=== PATIENT | male | born 1975 | race Asian ===

== ENCOUNTER 2021-04-13 03:43 | Emergency (ER) | payer OTHER ==
[~2021-04-13] VITALS: Ht 180.3 cm; Wt 108.9 kg
[2021-04-13] MEDS ORDERED: CEPH500 PO (05:48)
[2021-04-13] MEDS ORDERED: IBUP600 PO (05:48)
== END 2021-04-13 05:58 | disposition home or self-care (01) ==
LOC: ER 03:43
DX: L03.115 Cellulitis of right lower limb (principal); Z23 Encounter for immunization
CPT/HCPCS: 73610; 90471; 90714; 99283-25; A9270